=== PATIENT | female | born 1985 | race Caucasian/White ===

== ENCOUNTER 2024-05-05 16:56 | Emergency (ER) | payer OTHER, SELFPAY ==
[2024-05-05 17:00] VITALS: BP 129/75; PULSE 74; TEMP 36.7; O2SAT 100; BMI 21.9
--- NOTE | 2024-05-05 17:29 | ED.GENADUL1 ---
HPI HPI - General Adult General Chief complaint: Skin/Abscess/Foreign Body Stated complaint: TONGUE SWOLLEN Time Seen by Provider: 05/05/24 17:06 Mode of arrival: walk-in History of Present Illness HPI narrative: Patient is a 38-year-old female who presents to the emergency department for an area of swelling and pain to the right side of the tongue. Patient states she ate pineapple yesterday and she noticed pain and swelling to the right side of the tongue today. She has not had any fevers, drainage from the area. She states she had a discolored area overlying the area of swelling several months ago at a dental checkup. The area continues to be discolored today. She is not concerned for . She went to urgent care prior to arrival and they referred her to the ER. Related Data Previous Rx's ?Medication ?Instructions ?Recorded amoxicillin 875 mg-potassium 1 tab PO Q12H #20 tabs 05/05/24 clavulanate 125 mg tablet ketorolac 10 mg tablet 10 mg PO TID PRN pain #10 tabs 05/05/24 Allergies Allergy/AdvReac Type Severity Reaction Status Date / Time No Known Drug Allergies Allergy Verified 05/05/24 17:00 Opioid HPI Opioid Management Most Recent Opioid Data: No Data to Display Review of Systems ROS Constitutional Denies: fever or chills Ears, nose, mouth, and throat Reports: swelling of lips/tongue; Denies: throat pain or nasal congestion Respiratory Denies: shortness of breath or cough Gastrointestinal Denies: nausea or vomiting Integumentary/Breast Denies: rash Neurological Denies: numbness in extremities or weakness in extremities Hematologic/Lymphatic Denies: easy bruising or easy bleeding PFSH PFS Social History Little interest or pleasure in doing things: not at all Feeling down, depressed, or hopeless: not at all Exam Narrative Exam Narrative: Gen.: Awake, alert, in no distress Head: Normocephalic, atraumatic ENT: Moist mucous membranes, no redness or swelling under the tongue. Clear speech. No trismus or drooling. Right side of the tongue with a 0.5 cm area that is discolored, darker than the adjacent tissue. Underlying this is a 1 cm firm area in the right lateral aspect of the tongue. No fluctuance. No swelling or firmness on the underside of the tongue. Uvula midline. Respiratory: No respiratory distress Extremities: Moves extremities equally Psych: Normal mood and affect Neuro: No focal neuro deficit Skin: Warm, dry, intact Constitutional Vital Signs, click to edit/add: Last Vital Signs Temp 98.1 F 05/05/24 17:00 Pulse 74 05/05/24 17:00 Resp 18 05/05/24 17:00 BP 129/75 05/05/24 17:00 Pulse Ox 100 05/05/24 17:00 Course Vital Signs Vital signs: Vital Signs Temperature 98.1 F 05/05/24 17:00 Pulse Rate 74 05/05/24 17:00 Respiratory Rate 18 05/05/24 17:00 Blood Pressure 129/75 05/05/24 17:00 Pulse Oximetry 100 05/05/24 17:00 Temperature 98.1 F 05/05/24 17:00 Pulse Rate 74 05/05/24 17:00 Respiratory Rate 18 05/05/24 17:00 Blood Pressure 129/75 05/05/24 17:00 Pulse Oximetry 100 05/05/24 17:00 Medical Decision Making MDM Narrative Medical decision making narrative: As the area has rapidly swollen overnight and is painful, the patient is treated with antibiotics and a dose of steroid in the ER. Toradol given for comfort for home. The discolored area and discrete area of firmness to the right side of the tongue should be reevaluated by maxillofacial surgery, patient was instructed that if her symptoms do not improve with the antibiotics and medications, she likely needs a biopsy to determine the area is cancerous. She was given referrals for maxillofacial surgery in [place] in [place] for reevaluation. She verbalizes understanding. No evidence of anaphylaxis at this time. No evidence of Duke angina under the tongue. Follow-up with maxillofacial surgery and return to the ER if symptoms change or worsen SUPERVISED APC VISIT, PHYSICIAN ATTESTATION: Based on the medical record the care appears appropriate. ? Medical Records Medical records reviewed: Yes I reviewed the patient's medical records Discharge Plan Discharge Chief Complaint: Skin/Abscess/Foreign Body Clinical Impression: Tongue swelling Patient Disposition: Home, Self-Care Time of Disposition Decision: 17:24 Condition: Good Prescriptions / Home Meds: New ketorolac 10 mg tablet 10 mg PO TID PRN (Reason: pain) Qty: 10 0RF amoxicillin-pot clavulanate 875-125 mg tablet 1 tab PO Q12H Qty: 20 0RF Print Language: [place] Additional Instructions: If swelling and pain do not improve with medications, you need to follow up with maxillofacial surgery to see if the area needs further evaluation/testing: [facility] physician assistant surgery ([place]): [phone] [facility] physician assistant surgery ([place]): [phone] Referrals: Physician,Non-Staff, MD [Primary Care Provider] - 1 week
[2024-05-05] MEDS: DEXAMETHASONE SOD PHOS 10 MG/ML VIAL PO (17:32)
--- NOTE | 2024-05-05 17:38 | PC.NURSE ---
pt states lump on tongue that appeared yesterday
== END 2024-05-05 17:40 | disposition home or self-care (01) ==
PROVIDERS: Emergency Provider Emergency Medicine
DX: K14.8 Other diseases of tongue (principal); K14.6 Glossodynia
CPT/HCPCS: 99283; J1100